=== PATIENT | female | born 1945 | race Caucasian/White ===

== ENCOUNTER 2021-12-22 07:28 | Day surgery (SDC) | payer OTHER, BC ==
[2021-12-17 15:50] VITALS: BMI 29.2
[2021-12-22] MEDS ORDERED: TETRACAINE 0.5% OPHTH SOLN 2 ML BOTTLE ONE (09:09)
[2021-12-22] MEDS ORDERED: ERYTHROMYCIN 0.5% OPHTHALMIC OINTMENT 3.5 GM TUBE ONE (09:09)
[2021-12-22] MEDS ORDERED: LIDOCAINE HCL 1%, 10 MG/ML (20ML VIAL) ONE (09:09)
[2021-12-22] MEDS ORDERED: EPINEPHrine/PF 1 MG/1 ML (1:1,000) AMPULE ONE (09:09)
[2021-12-22] MEDS ORDERED: POVIDONE-IODINE 5% OPHTHALMIC PREP 30 ML SOLUTION ONE (09:10)
[2021-12-22] MEDS ORDERED: BUPIVACAINE HCL 50 ML ONE (09:10)
[2021-12-22] MEDS ORDERED: MIDAZOLAM HCL 2 MG/2 ML SINGLE DOSE VIAL ONE (09:17)
[2021-12-22] MEDS ORDERED: PROPOFOL 40 ML ONE (09:17)
[2021-12-22] MEDS ORDERED: LIDOCAINE HCL/PF 2% SDV 5ML VIAL ONE (09:32)
[2021-12-22] MEDS ORDERED: KETOROLAC TROMETHAMINE 30 MG/1 ML VIAL ONE (09:45)
[2021-12-22] MEDS ORDERED: ceFAZolin SODIUM 1 GM VIAL ONE (09:45)
[2021-12-22] MEDS ORDERED: DEXAMETHASONE SOD PHOSPHATE 4 MG/1 ML VIAL ONE (09:45)
[2021-12-22] MEDS ORDERED: ACETAMINOPHEN 325 MG TABLET (FP) PO PRN (12:34)
[2021-12-22] MEDS ORDERED: oxyCODONE HCL 5 MG TABLET PO PRN (12:34)
[2021-12-22 12:55] VITALS: RESP 16
[2021-12-22 14:48] VITALS: TEMP 97.7
[2021-12-22 14:56] VITALS: BP 99/58; PULSE 84
== END 2021-12-22 14:50 | disposition home or self-care (01) ==
LOC: FASU 07:28
PROVIDERS: ATTEND Ophthalmology
PROC: 08SN0ZZ Reposition Right Upper Eyelid, Open Approach (ICD-10-PCS; 2021-12-22)
PROC: 08R Eye, Replacement (ICD-10-PCS; 2021-12-22)
PROC: 0HX1XZZ Transfer Face Skin, External Approach (ICD-10-PCS; 2021-12-22)
PROC: 08BN0ZZ Excision of Right Upper Eyelid, Open Approach (ICD-10-PCS; 2021-12-22)
PROC: 08U Eye, Supplement (ICD-10-PCS; 2021-12-22)
PROC: 0HR1X73 Replacement of Face Skin with Autologous Tissue Substitute, Full Thickness, External Approach (ICD-10-PCS; principal; 2021-12-22 10:01)
DX: H02.89 Other specified disorders of eyelid (principal); Z85.828 Personal history of other malignant neoplasm of skin
CPT/HCPCS: 94760